=== PATIENT | male | born 1965 | race Caucasian/White ===

== ENCOUNTER 2018-10-27 08:43 | Day surgery (SDC) | payer BC ==
[2018-10-27] MEDS ORDERED: METOPROLOL 5 MG INJ (10:37)
[2018-10-27] MEDS ORDERED: PROPOFOL 40 ML (10:37)
== END 2018-10-27 14:52 | disposition home or self-care (01) ==
LOC: GIL 08:43
DX: Z12.11 Encounter for screening for malignant neoplasm of colon (principal); D12.5 Benign neoplasm of sigmoid colon; D12.4 Benign neoplasm of descending colon; D12.3 Benign neoplasm of transverse colon; I10 Essential (primary) hypertension
CPT/HCPCS: 45380; 88305